=== PATIENT | male | born 1980 | race Asian ===

== ENCOUNTER 2021-11-30 07:00 | Outpatient (CLI) | payer OTHER, SELFPAY ==
--- NOTE | 2021-11-30 07:15 | CRLHL7_ITS ---
For Patients: As a result of the Century Cures Act, medical imaging exams and procedure reports are released immediately into your electronic medical record. You may view this report before your referring provider. If you have questions, please contact your health care provider. INDICATION: CHRONIC HEPATITIS COMPARISON: 06/23/2021 TECHNIQUE: Real time reid scale imaging and color Doppler analysis was performed of the right upper quadrant. FINDINGS: The patient`s liver is of normal size and has mildly coarsened echogenicity. There is a normal appearance of the hepatic IVC and proximal abdominal aorta. There is no evidence of ascites. The gallbladder is of normal size and there is no evidence of intraluminal stones or sludge. The gallbladder wall measures 2 mm in thickness. The common bile duct is of normal size and measures 4.6 mm in diameter at the level of the anahy hepatis. The pancreas is not well-visualized. There is no evidence of a stone or hydronephrosis within the right kidney. The right kidney measures 8.3 cm in length. IMPRESSION: Similar exam with mild coarsening of the hepatic echotexture consistent with chronic hepatitis. No ascites or intrahepatic mass. Dictated by Max White MD @ 11/30/2021 8:11:02 AM (Electronically Signed)
== END 2021-11-30 07:01 | disposition home or self-care (01) ==
LOC: US 07:01
PROVIDERS: PCP Family Medicine; Visit Provider Internal Medicine Gastroenterology
DX: K73.9 Chronic hepatitis, unspecified (principal)
CPT/HCPCS: 76705

== ENCOUNTER 2022-05-18 07:59 | Outpatient (CLI) | payer OTHER, SELFPAY ==
--- NOTE | 2022-05-18 08:15 | CRLHL7_ITS ---
For Patients: As a result of the Century Cures Act, medical imaging exams and procedure reports are released immediately into your electronic medical record. You may view this report before your referring provider. If you have questions, please contact your health care provider. INDICATION: CHRONIC HEPATITIS COMPARISON: 11/30/2021 TECHNIQUE: Real time reid scale imaging and color Doppler analysis was performed of the right upper quadrant. FINDINGS: The patient`s liver is of normal size and has increased and coarsened echogenicity, as before. There is a normal appearance of the hepatic IVC and proximal abdominal aorta. There is no evidence of ascites. The gallbladder is of normal size and there is no evidence of intraluminal stones or sludge. The gallbladder wall measures 2 mm in thickness. The common bile duct is of normal size and measures 3 mm in diameter at the level of the anahy hepatis. The pancreas is not visualized due to overlying bowel gas. There is no evidence of a stone or hydronephrosis within the right kidney. The right kidney measures 8.1 cm in length. IMPRESSION: Chronic liver disease, similar to the prior study. No intrahepatic mass or ascites. Dictated by Max White MD @ 05/18/2022 8:54:43 AM (Electronically Signed)
== END 2022-05-18 08:00 | disposition home or self-care (01) ==
LOC: US 08:00
PROVIDERS: PCP Family Medicine; Visit Provider Internal Medicine Gastroenterology
DX: B18.1 Chronic viral hepatitis B without delta-agent (principal); K76.9 Liver disease, unspecified
CPT/HCPCS: 76705

== ENCOUNTER 2022-10-05 07:04 | Outpatient (CLI) | payer OTHER, SELFPAY ==
--- NOTE | 2022-10-05 07:15 | CRLHL7_ITS ---
For Patients: As a result of the Century Cures Act, medical imaging exams and procedure reports are released immediately into your electronic medical record. You may view this report before your referring provider. If you have questions, please contact your health care provider. INDICATION: Chronic hepatitis COMPARISON: 05/18/2022 TECHNIQUE: Real time reid scale imaging and color Doppler analysis was performed of the right upper quadrant. FINDINGS: The patient`s liver is of normal size and has mildly coarsened and increased echogenicity. There is a normal appearance of the hepatic IVC and proximal abdominal aorta. There is no evidence of ascites. The gallbladder is of normal size and there is no evidence of intraluminal stones or sludge. The gallbladder wall measures 2.7 mm in thickness. The common bile duct is of normal size and measures 4.3 mm in diameter at the level of the anahy hepatis. The pancreas is not well-visualized. There is no evidence of a stone or hydronephrosis within the right kidney. The right kidney measures 9.0 cm in length. IMPRESSION: Diffuse mildly coarsened and hyperechoic liver parenchyma, similar to the prior exam. No intrahepatic mass and no ascites. Dictated by Max White MD @ 10/05/2022 9:01:22 AM (Electronically Signed)
== END 2022-10-05 07:05 | disposition home or self-care (01) ==
LOC: US 07:05
PROVIDERS: PCP Family Medicine; Visit Provider Internal Medicine Gastroenterology
DX: B18.1 Chronic viral hepatitis B without delta-agent (principal)
CPT/HCPCS: 76705

== ENCOUNTER 2023-04-13 07:02 | Outpatient (CLI) | payer OTHER, SELFPAY ==
--- NOTE | 2023-04-13 07:15 | CRLHL7_ITS ---
For Patients: As a result of the Century Cures Act, medical imaging exams and procedure reports are released immediately into your electronic medical record. You may view this report before your referring provider. If you have questions, please contact your health care provider. INDICATION: Chronic hepatitis-B COMPARISON: 10/05/2022 TECHNIQUE: Real time reid scale imaging and color Doppler analysis was performed of the right upper quadrant. FINDINGS: The patient`s liver is of normal size and has mildly coarsened echogenicity. There is a normal appearance of the hepatic IVC and proximal abdominal aorta. There is no evidence of ascites. The gallbladder is of normal size and there is no evidence of intraluminal stones or sludge. The gallbladder wall measures 2 mm in thickness. The common bile duct is of normal size and measures 2 mm in diameter at the level of the anahy hepatis. The pancreas is not well-visualized. There is no evidence of a stone or hydronephrosis within the right kidney. The right kidney measures 8.9 cm in length. IMPRESSION: Mild diffuse hepatic steatosis. Normal gallbladder. Dictated by Max White MD @ 04/13/2023 10:36:23 AM (Electronically Signed)
[2023-04-13 08:27] LABS: Albumin* 4.7 g/dL (3.3-5.0)
[2023-04-13 08:30] LABS: Alkaline Phosphatase* 64 U/L (40-150); Aspartate Amino Transferase* 35 U/L (12-35); Bilirubin Total* 0.5 mg/dL (0.1-1.5); Estimated Glomerular Filt Rate 96 ml/min; Total Protein* 8.9 g/dL (6.0-8.3)
[2023-04-13 08:31] LABS: Alanine Aminotransferase* 31 U/L (4-50)
[2023-04-15 07:16] LABS: Alpha Fetoprotein Tumor Marker 2 ng/mL (0-9)
== END 2023-04-13 07:03 | disposition home or self-care (01) ==
PROVIDERS: PCP Family Medicine; Visit Provider Internal Medicine Gastroenterology
DX: B18.1 Chronic viral hepatitis B without delta-agent (principal); K76.0 Fatty (change of) liver, not elsewhere classified
CPT/HCPCS: 36415; 76705; 80076; 82105; 82565; 87517

== ENCOUNTER 2023-09-30 07:07 | Outpatient (CLI) | payer OTHER, SELFPAY ==
--- NOTE | 2023-09-30 07:15 | US_ITS ---
Patient: ALEX BARNARD Facility:?[facility] Patient ID:?[id number] Site Patient ID:?[id number]. Site :?[id number] Study:?US-Abdomen RUQ-09/30/2023 8:36:31 AM Ordering Physician:RAFAELA ALLAN Final Report: INDICATION: Chronic hepatitis-B. TECHNIQUE: Ultrasound abdomen limited. Sonographic images of the right upper quadrant were obtained using reid-scale and color Doppler images. COMPARISON: None available. FINDINGS: Liver: The liver is normal in size and echogenicity. Mildly coarsened parenchymal echotexture. No focal liver lesion is seen. Main portal vein is patent with hepatopetal flow. Gallbladder: No stones or sludge. Normal wall thickness. No pericholecystic fluid. Common bile duct: 3 mm. Pancreas: Limited evaluation due to bowel gas. Right kidney: Normal in size. Normal echotexture and cortex. No suspicious masses, stones, or hydronephrosis. Vasculature: Proximal abdominal aorta and IVC are unremarkable. IMPRESSION: Similar coarsened hepatic parenchymal echotexture. No focal liver lesion is seen. Dictated by Machelle Connor MD @ 09/30/2023 3:41:10 PM Signed by:?Machelle Connor MD @09/30/2023 3:41:10 PM (Electronic Signature)
[2023-09-30 08:01] LABS: Albumin* 4.5 g/dL (3.3-5.0)
[2023-09-30 08:03] LABS: Estimated Glomerular Filt Rate 96 ml/min; Total Protein* 9.1 g/dL (6.0-8.3)
[2023-09-30 08:04] LABS: Alanine Aminotransferase* 32 U/L (4-50); Alkaline Phosphatase* 66 U/L (40-150); Aspartate Amino Transferase* 37 U/L (12-35); Bilirubin Total* 0.4 mg/dL (0.1-1.5)
[2023-10-01 08:31] LABS: Alpha Fetoprotein Tumor Marker 1 ng/mL (0-9)
== END 2023-09-30 07:08 | disposition home or self-care (01) ==
PROVIDERS: PCP Family Medicine; Visit Provider Internal Medicine Gastroenterology
DX: B18.1 Chronic viral hepatitis B without delta-agent (principal)
CPT/HCPCS: 36415; 76705; 80076; 82105; 82565; 87517

== ENCOUNTER 2024-04-20 08:07 | Outpatient (CLI) | payer OTHER, SELFPAY ==
--- NOTE | 2024-04-20 08:15 | CRLHL7_ITS ---
For Patients: As a result of the Century Cures Act, medical imaging exams and procedure reports are released immediately into your electronic medical record. You may view this report before your referring provider. If you have questions, please contact your health care provider. INDICATION: Chronic Hep B COMPARISON: none TECHNIQUE: Real time reid scale imaging and color Doppler analysis was performed of the right upper quadrant. FINDINGS: Liver echotexture is mildly coarsened. No intrahepatic mass. Liver measures 13.3 cm. There is a normal appearance of the hepatic IVC and proximal abdominal aorta. There is no evidence of ascites. The gallbladder is of normal size and there is no evidence of intraluminal stones or sludge. The gallbladder wall measures 2.0 mm in thickness. The common bile duct is of normal size and measures 3.1 mm in diameter at the level of the anahy hepatis. The visualized pancreas appears normal. There is no evidence of a stone or hydronephrosis within the right kidney. The right kidney measures 8.9 cm in length. IMPRESSION: Mildly coarsened hepatic echotexture without intrahepatic mass or ascites. Remainder unremarkable. Dictated by Max White MD @ 04/20/2024 10:48:02 AM (Electronically Signed)
[2024-04-20 09:42] LABS: Albumin* 4.6 g/dL (3.3-5.0)
[2024-04-20 09:45] LABS: Alanine Aminotransferase* 33 U/L (4-50); Alkaline Phosphatase* 71 U/L (40-150); Aspartate Amino Transferase* 36 U/L (12-35); Total Protein* 8.1 g/dL (6.0-8.3)
[2024-04-20 09:50] LABS: Bilirubin Total* < 0.1 mg/dL (0.1-1.5)
[2024-04-21 17:22] LABS: Alpha Fetoprotein Tumor Marker 1 ng/mL (0-9)
== END 2024-04-20 08:08 | disposition home or self-care (01) ==
LOC: US 08:08
PROVIDERS: PCP Family Medicine; Visit Provider Physician Assistant
DX: B18.1 Chronic viral hepatitis B without delta-agent (principal); K76.0 Fatty (change of) liver, not elsewhere classified; K21.9 Gastro-esophageal reflux disease without esophagitis
CPT/HCPCS: 36415; 76705; 80076; 82105; 87517

== ENCOUNTER 2024-10-16 07:56 | Outpatient (CLI) | payer OTHER, SELFPAY ==
--- NOTE | 2024-10-16 08:15 | CRLHL7_ITS ---
For Patients: As a result of the Century Cures Act, medical imaging exams and procedure reports are released immediately into your electronic medical record. You may view this report before your referring provider. If you have questions, please contact your health care provider. INDICATION: HEPATITIS B CHRONIC COMPARISON: 04/20/2024 TECHNIQUE: Real time reid scale imaging and color Doppler analysis was performed of the right upper quadrant. FINDINGS: The patient`s liver is of normal size and has mildly coarsened echogenicity. There is a normal appearance of the hepatic IVC and proximal abdominal aorta. There is no evidence of ascites. The gallbladder is of normal size and there is no evidence of intraluminal stones or sludge. The gallbladder wall measures 1 mm in thickness. The common bile duct is of normal size and measures 5 mm in diameter at the level of the anahy hepatis. The pancreas appears normal. There is no evidence of a stone or hydronephrosis within the right kidney. The right kidney measures 9.4 cm in length. IMPRESSION: Mild coarsening of the hepatic echotexture without intrahepatic mass or ascites. Remainder unremarkable. Dictated by Max White MD @ 10/16/2024 9:32:35 AM (Electronically Signed)
== END 2024-10-16 07:57 | disposition home or self-care (01) ==
LOC: US 07:57
PROVIDERS: PCP Family Medicine; Visit Provider Physician Assistant
DX: B18.1 Chronic viral hepatitis B without delta-agent (principal)
CPT/HCPCS: 76705